=== PATIENT | female | born 1995 | race Caucasian/White ===

== ENCOUNTER 2017-02-23 17:37 | Emergency (ER) | payer BC ==
[~2017-02-23] VITALS: Wt 108.9 kg
[~2017-02-23 17:37] MED LIST: ANAPROX DS550 MG PO; CEPHALEXIN500 M1 PO; Fioricet 325 MG1 TAB PO; HYDROCODONE BIT1 T11 PO; NAPROSYN500 MG PO; PHENERGAN25 MG R
[2017-02-23 17:43] VITALS: BP 136/88
[2017-02-23] MEDS ORDERED: MUCINEX D ER 11 EACH PO (19:02)
== END 2017-02-23 20:40 | disposition home or self-care (01) ==
LOC: ED 17:37
DX: J20.8 Acute bronchitis due to other specified organisms (principal); F17.200 Nicotine dependence, unspecified, uncomplicated

== ENCOUNTER 2017-05-06 09:42 | Emergency (ER) | payer BC ==
[~2017-05-06] VITALS: Ht 167.6 cm; Wt 108.9 kg
[~2017-05-06 09:42] MED LIST changes: +MUCINEX D ER 11 EACH PO
[2017-05-06 09:45] VITALS: BP 131/74
[2017-05-06] MEDS ORDERED: NAPROSYN500 MG PO (09:50)
[2017-05-06] MEDS ORDERED: 'PARAFON FORTE500 M1 PO (09:50)
[2017-05-06] MEDS ORDERED: MIRALAX POWDER17 G1 PO (10:47)
== END 2017-05-06 13:31 | disposition home or self-care (01) ==
LOC: ED 09:42
DX: M54.42 Lumbago with sciatica, left side (principal); K59.00 Constipation, unspecified; R03.0 Elevated blood-pressure reading, without diagnosis of hypertension; G43.909 Migraine, unspecified, not intractable, without status migrainosus; F17.200 Nicotine dependence, unspecified, uncomplicated; F10.10 Alcohol abuse, uncomplicated; Z79.899 Other long term (current) drug therapy

== ENCOUNTER 2018-01-01 10:06 | Emergency (ER) | payer BC ==
[~2018-01-01] VITALS: Wt 108.9 kg
[~2018-01-01 10:06] MED LIST changes: +'PARAFON FORTE500 M1 PO; +MIRALAX POWDER17 G1 PO
[2018-01-01 10:08] VITALS: BP 135/81
[2018-01-01] MEDS ORDERED: NAPROSYN500 MG PO (10:21)
[2018-01-01] MEDS ORDERED: CHLORZOXAZONE500 M2 PO (10:21)
[2018-01-01 10:32] LABS: BILIRUBIN NEGATIVE (NEGATIVE); BLOOD NEGATIVE (NEGATIVE); CLARITY CLEAR (CLEAR); COLOR YELLOW (YELLOW); GLUCOSE NEGATIVE (NEGATIVE); KETONE NEGATIVE (NEGATIVE); LEUKO ESTERASE TRACE (NEGATIVE); NITRITE NEGATIVE (NEGATIVE); SPECIFIC GRAVITY 1.015 (1.005-1.030); UROBILINOGEN 0.2 E.U./dl (0.2-1.0)
[2018-01-01 10:49] LABS: BACTERIA 1+
== END 2018-01-01 11:15 | disposition home or self-care (01) ==
LOC: ED 10:06
PROVIDERS: Nurse Practitioner Family
DX: M54.5 Low back pain (principal); R03.0 Elevated blood-pressure reading, without diagnosis of hypertension; Z79.899 Other long term (current) drug therapy